=== PATIENT | female | born 1985 | race Caucasian/White ===

== ENCOUNTER 2016-11-18 22:33 | Observation (INO) ==
--- NOTE | 2016-11-18 05:54 | OB/GYN History & Physical ---
Date of Encounter: 11/18/16 Time of Encounter: 05:54 Assessment and Plan (1) Spontaneous rupture of membranes Current visit: Yes Status: Acute Admit to labor and delivery for SROM Patient may have epidural upon request Expect vaginal delivery Consulted with Dr Cortes Currently cervix 1 (2) 39 weeks gestation of Current visit: Yes Status: Acute History of Present Illness Chief complaint: SROM HPI: Ms. Javier is a 31 year old female 39 weeks 4 days presents for spontaneous rupture of membranes. This occurred at 215 this morning. Estimated due date 11/19/2016. Soaked 2 pads en route to hospital. Contractions have been between 3 to 5 minutes apart. She is a patient of Dr. Fallon. Cervix closed and thick checked yesterday in office. GBS negative and rubella immune. She is B positive blood type. all other serologies negative. History of subchorionic hematoma, resolved. No other complaints at this time such as headache, visual changes, shortness of breath, vaginal bleeding, discharge or urinary complaints. Past Med Surg Social Fam HX - Past Medical History Medical history: no medical history Psychiatric history: no psych history - Past Surgical History Surgical History: no surgical history - Social History Smoking Status: Never smoker Smokeless Tobacco Status: No Alcohol use: none Drug use: none - Family History Mother Living Status: Still Living Hx Family Cardiac Disorders: No Hx Family Respiratory Disorders: No Hx Family Cancer: No Hx Family GI Disorders: No Hx Family Genitourinary Disorders: No Hx Family Endocrine Disorder: No Hx Family Musculoskeletal Disorders: No Hx Family Neuromuscular Disorders: No Hx Family Neurologic Disorders: No Hx Family HEENT Disorders: No Hx Family Autoimmune Disorders: No Hx Family Reproductive Disorders: No Hx Family Psychosocial Disorders: No Hx Family Medical Disorders: No Obstetrical History - Pregnancies : 5 Para: 4 Term: 0 : 0 Ab's: 4 Livin - History/Complications History/Complications: recurrent abortions Medications and Allergies Vit #108/Iron/FA [ One Tablet] 1 each PO DAILY 11/18/16 [ History] Promethazine [Phenergan] 12.5 mg PO Q6HR 11/18/16 [History] Allergies No Known Allergies Allergy (Verified 11/18/16 05:27) Review of System OB All systems PM: reviewed and no additional remarkable complaints except as stated Exam - Constitutional Constitutional: well developed, well nourished, no acute distress, average body habitus - HEENT HEENT: Normocephaly, Mucus Membranes Moist - Neck Neck exam: full ROM - Lungs Respiratory exam: CTAB - Cardiovascular Cardiovascular exam: RRR, +S1, +S2 - Breasts Breast: bilateral: normal - Abdomen Abdomen: Present: bowel sounds normal, gravid, non tender - Extremities Extremities exam: normal capillary refill, normal inspection, radial pulses palpable and symetrical Deep Tendon Reflex Grade: 2+ Normal - Vagina Vagina: Present: normal moisture. Absent: discharge - Cervix Dilation: 4 (per Dr. Cortes) Effacement: 90 (per Dr. Cortes) Station: -2 - Uterus Uterus exam: Present: normal size, normal contour Results Result Diagrams: 11/18/16 05:58 All other labs normal. - VTE Reasons for not Prescribing Prophylaxis: Treatment not Indicated - Low risk for VTE
[2016-11-18 06:06] LABS: Basophils % 0.4 %; Hematocrit 38.5 % (35.3-44.9); Hemoglobin 13.1 g/dL (11.5-15.4); Immature Granulocytes % 0.5 % (0-4); Lymphocytes # 1.6 K/mcL (0.6-4.6); Lymphocytes % 19.6 %; Mean Corpuscular Hemoglobin 29.8 pg (28.0-33.3); Mean Corpuscular Volume 87.5 fL (83.0-100.0); Mean Platelet Volume 9.8 fL (9.4-12.4); Monocytes # 0.7 K/mcL (0.0-1.3); Monocytes % 8.7 %; Neutrophils # 5.9 K/mcL (1.6-8.9); Platelet Count 256 K/mcL (140-400); Red Cell Distribution Width 14.4 % (11.5-14.5); Segmented Neutrophils % 70.8 %
[2016-11-18] MEDS: Ringers Solution, Lactated 1,000 ML IVC SCH ×2 (06:26→08:10)
--- NOTE | 2016-11-18 07:28 | Anesthesia Evaluation PreOp ---
Date of Encounter: 11/18/16 Time of Encounter: 07:27 - Past History Planned Operation: saul Cardiac History: Denies any Significant Hx Pulmonary History: Denies Any Significant HX ZOO DIRECTOR History: Denies Any Significant HX Other Medical History: Denies Any Significant HX Anesthesia History: No Prior Anesthetic Complications : Yes (, 39 plus 6) Alcohol Use: none Drug use: none Medications and Allergies Vit #108/Iron/FA [ One Tablet] 1 each PO DAILY 11/18/16 [ History] Promethazine [Phenergan] 12.5 mg PO Q6HR 11/18/16 [History] Allergies No Known Allergies Allergy (Verified 11/18/16 05:27) - Meds/Allergy Pre-op Review Medications Reviewed: Yes Allergies Reviewed: Yes Beta Blockers on Current Med List: No Anesthesia Results - Labs 11/18/16 05:58 Anesthesia Exam O2 Sat Height 1.57 m Weight 58.967 kg 107/76 Weight: 58 - HEENT Pupil (Motor): Pupils equal Mallampati: II Teeth: Normal Oral Opening: Greater than 3 - ZOO DIRECTOR LOC: Oriented ZOO DIRECTOR Motor: Normal RUE, Normal LUE, Normal RLE, Normal LLE, Normal Face ZOO DIRECTOR Sensory: Normal: RUE, LUE, RLE, LLE, Face - Cardiac Rhythm: Regular Murmur: None JVD: No Carotid Bruit: No - Pulmonary Breath Sounds: bilateral Clear Respiratory Effort: Symmetrical Anesthesia Assess/Plan ASA Score: 2 Modified Alicia Scale for Level of Consciousness: Cooperative, oriented, and tranquil Anesthetic Plan: Regional Monitoring Plan: Standard Monitors Recovery Plan: PACU
--- NOTE | 2016-11-18 08:31 | Anesthesia Procedures ---
Date of Encounter: 11/18/16 Time of Encounter: 08:29 Procedures: Anesthesia - Epidural/Spinal Patient ID/Chart reviewed: Yes Patient examined: Yes OB Eval: Gestational age: 40 OB Eval: : 5 OB Eval: Hx Para: 0 OB Eval: Dilated at (cm): 4 OB Eval: Contractions: Non-stressed pattern Consent Obtained: Yes Supplemental Oxygen: None/Room Air Site Prep: Aseptic Technique, 0.5% Chlorhexidine/Alcohol Patient position: upright Local Anesthetic: Lidocaine 1% Amount of Local Anesthetic used: 3 Touhy Needle Gauge: 18 Touhy Needle Depth (cm): 5 Catheter Depth at Skin (cm): 12 Test Dose Result: Negative Loading Dose: 0.25% Marcaine (mls): 5 Loading Dose: Fentanyl (mcg): 100 Loading Dose: Other: 2ml nss Loading Dose Administered: Thru Touhy Needle Infusion Med: 0.125% Bupivacaine w/ 2 mcg/ml Fentanyl Infusion Rate (mls/hr): [address]: Tegaderm Interspace Used: L4-L5 Loss of Resistance (AMIE): Yes Blood: No CSF: No Paresthesia: No Procedure: strict asepsis, good amie, fhr unchanged
--- NOTE | 2016-11-18 09:51 | OB Labor Progress Note ---
Date of Encounter: 11/18/16 Time of Encounter: 09:49 Labor Progress Note - Subjective Subjective: Pt resting comfortable in bed after epidural. - Heart Tones Heart Tones: 135/moderate/no accels/early decels/ Cat I - Genoa Genoa: 8 minutes - Interventions Interventions: discussed POC with patient. Pt is okay with addition of pitocin for augmentation. - Plan Plan: Start pitocin for augmentation Continue all other current management Anticipate ,
--- NOTE | 2016-11-18 18:48 | OB/GYN Procedure Note ---
Delivery - Delivery Date: 11/18/16 Provider: Kristan Koo (Ady present ) Delivery induction: none Delivery augmentation: pitocin Delivery monitor: external FHT, external uterine Anesthesia: epidural Estimated Blood Loss: 100 - (s) Infant A Delivery Date: 11/18/16 Delivery Time: 18:00 Presentation: vertex Position: OA Route of delivery: Gender: Male Viability: Viable Pounds: 7 Ounces: 10 at 1 minute: 4 at 5 mins: 8 Shoulder Dystocia: not encountered Placenta: spontaneous (ashley) - Repair Episiotomy: none Laceration Description: None - Complications Delivery complications: none Delivery comments: Progressed to complete, use of directed pushing, laboring down and further directed pushing led to of liveborn male. Vertex delivered OA, shoulders and body easliy followed, no nuchal or shoulder dystocia encountered. placed on maternal abdomen, no spontaneous cry cord cut and clamped and infant taken to warmer. APGARS 4/8. Placenta delivered spontaneously (ashley). Perineum intact with no lacerations. EBL 100. Dr. Garsia present for all of the procedure. - Disposition Mom disposition: stable in LDR [place] disposition: stable in LDR
[~2016-11-18 22:33] MED LIST: *HR* FentaNYL (PF) 100 MCG/2 ML VIAL EP ONE; *HR* FentaNYL (PF) 100 MCG/2 ML VIAL ONE; *HR* Nalbuphine 20 MG/ML AMPUL IVP PRN; *HR* Ropivacaine/PF 0.2% 10 ML AMPUL EP ONE; *HR* Ropivacaine/PF 0.2% 10 ML AMPUL ONE; Acetaminophen 325 MG TABLET PO PRN; Benzocaine/Menthol 56 GM AEROSOL SPRAY TP PRN; EPHEDrine 50 MG/ML VIAL IVP PRN; Epidural Premix (fent/bupiv) 110 ML EP ONE; Epidural Premix (fent/bupiv) 110 ML EP SCH; Famotidine 20 MG/2 ML VIAL IVP PRN; Ibuprofen 600 MG TABLET PO PRN; Lanolin 7 G OINT...G. TP PRN; Metoclopramide 10 MG/2 ML VIAL IVP PRN; Naloxone 0.4 MG/ML INJ IVP PRN; Oxytocin 20 units/ LR 1000 mL 20 UNIT/1,000 ML BAG IVC ONE; Oxytocin 20 units/ LR 1000 mL 20 UNIT/1,000 ML BAG IVC SCH
[2016-11-19] MEDS ORDERED: *HR* Belladonna Alkaloids/Opium 30 MG RECTAL SUPPOSITORY RC ONE (06:39)
[2016-11-19] MEDS ORDERED: Bupivacaine/EPI 1:200k 0.25%PF 30 ML VIAL ONE (06:39)
--- NOTE | 2016-11-19 08:11 | Discharge Summary ---
Date of Encounter: 11/19/16 Time of Encounter: 08:09 - Discharge Diagnosis (1) Vaginal delivery Priority: Primary Status: Acute Comments: Continue routine care discharge home today follow up in 4-[address] Fallon. (2) Breast feeding status of mother Priority: Secondary Status: Acute Comments: support prn - Discharge Medications Home Medications: Vit #108/Iron/FA [ One Tablet] 1 each PO DAILY 11/18/16 [ History] Vit/FA 1 each PO DAILY tablet 11/19/16 [Rx] Allergies/Adverse Reactions: Allergies No Known Allergies Allergy (Verified 11/18/16 05:27) Data Procedures and tests throughout hospitalization: Laboratory Tests 11/18/16 05:58 WBC 8.3 RBC 4.40 Hgb 13.1 Hct 38.5 MCV 87.5 MCH 29.8 MCHC 34.0 RDW 14.4 Plt Count 256 MPV 9.8 Immature Gran % 0.5 Seg Neutrophils % 70.8 Lymphocytes % 19.6 Monocytes % 8.7 Eosinophils % 0.0 Basophils % 0.4 Neutrophils # 5.9 Lymphocytes # 1.6 Monocytes # 0.7 Eosinophils # 0.0 Basophils # 0.0 Date of admission: 11/18/16 04:55 Primary care physician: PCP NO Consults: 11/18/16 22:33 Consult to [facility] [CONS] Routine Comment: Vaginal delivery, consult needed Discharging clinician: Lory Camejo Anticipated date of discharge: 11/19/16 - Patient Status Disposition: Home, Self-Care Condition: Good Functional capacity at discharge: independent ambulation - Discharge Instructions Follow Up With: NO,PCP [Primary Care Provider] - Dinah Fallon DO [Partnered Physician] - - Diet and Activity Activity: increase activity as tolerated Diet: regular diet Hospital Course Reason for admission: active labor Delivery: Episiotomy: none Laceration: none Other procedures: none complications: none Discharge diagnosis: IUP at term delivered [place] baby: male (breast feeding) Time Attestation: Total time spent providing and/or coordinating discharge services: Time Spent: Less than 30 minutes Exam - Constitutional Vitals: Temp Pulse Resp BP Pulse Ox 98.4 F 61 14 97/60 95 11/19/16 04:00 11/19/16 04:00 11/19/16 04:00 11/19/16 04:00 11/19/16 04:00 General appearance IM: A&O X 3, pleasant, answers questions appropriately - Respiratory Respiratory exam: Present: CTAB - Cardiovascular Cardiovascular exam IM: Present: RRR, +S1, +S2 - GI/Abdominal GI/Abdominal exam IM: normal bowel sounds - Uterine Tone: Firm Uterus Position: 2 Fingers Below Umbilicus, Midline - Extremities Exam Extremities exam IM: Present: full ROM, normal capillary refill, normal inspection - Neurological Exam Neurological exam: alert, oriented X3, reflexes normal
[2016-11-19] MEDS ORDERED: Prenatal Vit/FA 1 EACH TABLET PO SCH (09:00)
[2016-11-19] MEDS ORDERED: Lanolin 7 G OINT...G. TP PRN (11:46)
[2016-11-19 16:14] VITALS: BP 96/68
== END 2016-11-19 19:03 | disposition home or self-care (01) ==
LOC: 1NENULAB → 1NENUOBS 22:33
PROVIDERS: ADMIT Obstetrics & Gynecology; ATTEND Obstetrics & Gynecology